=== PATIENT | female | born 1975 | race Caucasian/White ===

== ENCOUNTER 2017-08-01 14:14 | Emergency (ER) | payer OTHER ==
[2017-08-01 14:28] VITALS: BP 129/70; PULSE 99; TEMP 97.9; BMI 22.8
--- NOTE | 2017-08-01 14:29 | PDOC ---
Rapid Medical Evaluation Time Seen by Provider: 08/01/17 14:22 Medical Evaluation: 08/01/17 14:22 I have performed a brief in-person evaluation of this patient. The patient presents with a chief complaint of: increase in pain x 3 days requesting second opinion from another orthopedic Pertinent physical exam findings: NAD even and unlabored breathing cam boot in place on left leg I have ordered the following: none The patient will proceed to the ED for further evaluation.
--- NOTE | 2017-08-01 14:53 | PDOC ---
History of Present Illness - General Chief Complaint: Pain Stated Complaint: ITCHING FOOT Time Seen by Provider: 08/01/17 14:22 History Source: Patient Exam Limitations: No Limitations - History of Present Illness Initial Comments: 08/09/17 09:29 42 yr female states she has history of fractured left foot followed by ortho at [facility]. Pt has a walking boot in place is c/o itching and pain to the foot. Pt currently taking pain medications at home. Pt denies any new trauma. Severity: Yes: mild Lower Extremity Pain Location: left: foot Past History - Past Medical History Allergies/Adverse Reactions: Allergies Allergy/AdvReac Type Severity Reaction Status Date / Time Penicillins Allergy Difficulty Verified 08/01/17 14:22 Breathing Home Medications: Ambulatory Orders Gabapentin 300 mg PO ASDIR 08/01/17 COPD: No Other medical history: HERNIATED DISKS - Surgical History Neurologic Surgery: Yes (SPINAL FUSION) - Suicide/Smoking/Psychosocial Hx Smoking History: Never smoked *Physical Exam - Vital Signs Last Vital Signs Temp Pulse Resp BP Pulse Ox 97.9 F 99 H 18 129/70 98 08/01/17 14:23 08/01/17 14:23 08/01/17 14:23 08/01/17 14:23 08/01/17 14:23 - Physical Exam General Appearance: Yes: Nourished, Appropriately Dressed HEENT: positive: EOMI, MRAY Extremity: positive: Normal Capillary Refill, Normal Inspection, Normal Range of Motion. negative: Tender, Erythema, Inflammation Integumentary: positive: Normal Color, Dry, Warm. negative: Rash, Swelling, Ecchymosis, Bruising Neurologic: positive: Fully Oriented, Alert, Normal Mood/Affect, Normal Response , Motor Strength 5/5 Medical Decision Making - Medical Decision Making 08/09/17 09:31 cc: chronic pain left foot s/p foot fracture 6 weeks ago in a walking boot currently. pt followed by ortho at [facility]. foot is withn normal limits no rash no redness no swelling no evidence of fungal infection or any skin infection pt is to follow with her orthopedist as planned *DC/Admit/Observation/Transfer Diagnosis at time of Disposition: Pruritus - Discharge Dispostion Disposition: HOME Condition at time of disposition: Good - Referrals Referrals: ON STAFF,NOT [Primary Care Provider] - - Patient Instructions Additional Instructions: follow with the orthopedist for follow up - Post Discharge Activity
--- NOTE | 2017-08-01 15:00 | PDOC ---
History of Present Illness - General Chief Complaint: Pain Stated Complaint: ITCHING FOOT Time Seen by Provider: 08/01/17 14:22 History Source: Patient Exam Limitations: No Limitations - History of Present Illness Initial Comments: 08/01/17 14:55 42 yr female with c/o itching to the foot and increased pain. Pt states she had a foot fracture in June has been followed and treated by , is wearing a walking shoe. Pt states she has pain medication and her next appointment is in 6 weeks. Extremity Pain Location - Extremity Pain Location Extremity Pain Locations: left: foot (;ateral 5th tenderness, no deformity or swelling no bruising ) Past History - Past Medical History Allergies/Adverse Reactions: Allergies Allergy/AdvReac Type Severity Reaction Status Date / Time Penicillins Allergy Difficulty Verified 08/01/17 14:22 Breathing Home Medications: Ambulatory Orders Gabapentin 300 mg PO ASDIR 08/01/17 COPD: No Other medical history: HERNIATED DISKS - Surgical History Neurologic Surgery: Yes (SPINAL FUSION) - Suicide/Smoking/Psychosocial Hx Smoking History: Never smoked Review of Systems - Review of Systems Able to Perform ROS?: Yes Is the patient limited Tajik proficient: No Constitutional: No: Symptoms Reported HEENTM: No: Symptoms Reported Musculoskeletal: Yes: Symptoms Reported *Physical Exam - Vital Signs Last Vital Signs Temp Pulse Resp BP Pulse Ox 97.9 F 99 H 18 129/70 98 08/01/17 14:23 08/01/17 14:23 08/01/17 14:23 08/01/17 14:23 08/01/17 14:23 - Physical Exam General Appearance: Yes: Nourished, Appropriately Dressed HEENT: positive: EOMI, MARY Musculoskeletal: positive: Normal Inspection Extremity: positive: Normal Capillary Refill, Normal Inspection, Normal Range of Motion, Tender, Other (no evidence of fungal infection or other infection). negative: Swelling, Erythema, Inflammation Integumentary: positive: Normal Color, Dry, Warm Neurologic: positive: Fully Oriented, Alert, Normal Mood/Affect, Normal Response , Motor Strength 5/5 Medical Decision Making - Medical Decision Making 08/01/17 14:58 cc: itching to foot and pain s/p foot injury in June pt has shoe boot no recent trauma foot is without swelling no redness nv intact, TTP left lateral foot. discussed with pt to follow with Dr.Laura sooner rather than later if pain is continuing pt agrees with plan *DC/Admit/Observation/Transfer Diagnosis at time of Disposition: Pruritus - Discharge Dispostion Disposition: HOME Condition at time of disposition: Good - Referrals Referrals: ON STAFF,NOT [Primary Care Provider] - - Patient Instructions Additional Instructions: follow with the orthopedist for follow up - Post Discharge Activity
== END 2017-08-01 15:08 | disposition home or self-care (01) ==
LOC: JERFT 14:14
DX: L29.8 Other pruritus (principal); Z87.81 Personal history of (healed) traumatic fracture; Z88.8 Allergy status to other drugs, medicaments and biological substances
CPT/HCPCS: 99281-25

== ENCOUNTER 2020-08-15 06:18 | Day surgery (SDC) | payer OTHER ==
[2020-08-12 11:18] VITALS: BMI 25.1
[2020-08-15] MEDS ORDERED: ceFAZolin SODIUM 1 GM VIAL ONE (07:09)
[2020-08-15] MEDS ORDERED: GENTAMICIN SO4 80 MG/2 ML VIAL ONE (07:09)
[2020-08-15] MEDS ORDERED: MIDAZOLAM HCL 2 MG/2 ML SINGLE DOSE VIAL ONE ×2 (07:55)
[2020-08-15] MEDS ORDERED: PROPOFOL 20 ML ONE (07:55)
[2020-08-15] MEDS ORDERED: SUCCINYLCHOLINE CHLORIDE 200 MG/10 ML SYRINGE ONE (07:56)
[2020-08-15] MEDS ORDERED: ROCURONIUM BROMIDE 50 MG/5 ML SYRINGE ONE (07:56)
[2020-08-15] MEDS ORDERED: ONDANSETRON 4 MG/2 ML VIAL IVPB PRN ×2 (11:47→12:55)
[2020-08-15] MEDS ORDERED: oxyCODONE HCL 5 MG TABLET PO PRN ×3 (11:47→11:51)
[2020-08-15] MEDS ORDERED: ONDANSETRON 4 MG/2 ML VIAL IVPUSH PRN (11:51)
[2020-08-15] MEDS ORDERED: PROMETHAZINE HCL 25 MG/1 ML VIAL IVPUSH PRN (11:51)
[2020-08-15] MEDS ORDERED: LACTATED RINGERS SOLUTION 1,000 ML IV SCH ×3 (12:00→13:00)
[2020-08-15] MEDS ORDERED: FENTANYL TP SCH (12:00)
[2020-08-15 12:21] VITALS: TEMP 97.1
[2020-08-15] MEDS ORDERED: oxyCODONE HCL 5 MG TABLET ONE ×2 (12:27→13:16)
[2020-08-15] MEDS ORDERED: ACETAMINOPHEN INJECTION 100 ML IVPB ONE (12:27)
[2020-08-15] MEDS: ACETAMINOPHEN 1000 MG/100 ML VIAL (NON FORMULARY) IVPB ONE ×2 (12:30→15:05)
[2020-08-15 13:28] VITALS: BP 115/58; PULSE 88
[2020-08-15] MEDS ORDERED: CLINDAMYCIN HCL 150 MG CAPSULE (FP) PO SCH (14:00)
[2020-08-15] MEDS ORDERED: ENOXAPARIN NA (PORCINE) 30 MG/0.3 ML DISP.SYRIN SQ SCH (22:00)
== END 2020-08-15 17:05 | disposition home or self-care (01) ==
LOC: FASU 06:18 → FM/S 14:54 → FASU 17:05
PROVIDERS: ATTEND Plastic Surgery
PROC: 0HPU0JZ Removal of Synthetic Substitute from Left Breast, Open Approach (ICD-10-PCS; principal; 2020-08-15 08:48)
PROC: 0HPT0JZ Removal of Synthetic Substitute from Right Breast, Open Approach (ICD-10-PCS; 2020-08-15 08:48)
PROC: 0HQV0ZZ Repair Bilateral Breast, Open Approach (ICD-10-PCS; 2020-08-15 08:48)
DX: N64.81 Ptosis of breast (principal); T85.41XA Breakdown (mechanical) of breast prosthesis and implant, initial encounter; T85.44XA Capsular contracture of breast implant, initial encounter; Y83.8 Other surgical procedures as the cause of abnormal reaction of the patient, or of later complication, without mention of misadventure at the time of the procedure; Y82.8 Other medical devices associated with adverse incidents; Y92.9 Unspecified place or not applicable
CPT/HCPCS: 88304-TC; 88305-TC; 94760; J0131